=== PATIENT | male | born 1940 | race Caucasian/White ===

== ENCOUNTER 2017-05-30 17:12 | Day surgery (SDC) | payer MEDICARE ==
[2017-05-30] MEDS ORDERED: Bupivacaine 0.25% HCL 30 ML VIAL ONE (17:43)
[2017-05-30] MEDS ORDERED: Bacitracin Zinc Ointment 30 gm TUBE ONE (17:43)
[2017-05-30] MEDS ORDERED: Sodium Chloride 0.9% 30 ML ONE (17:43)
[2017-05-30] MEDS ORDERED: Thrombin 5000 UNITS/5 ML VIAL ONE ×2 (17:43→19:24)
[2017-05-30 17:59] LABS: #Eosinphils 0.2 thou/uL (0.0-0.7); #Monocytes 0.7 thou/uL (0.11-0.59); #Neutrophils 4.4 thou/uL (1.40-6.50); %Basophils 0.3 % (0.0-1.0); %Eosinophils 3.2 % (0.0-10.0); %Lymphocytes 27.4 % (21.0-51.0); %Monocytes 9.4 % (0.0-10.0); %Neutrophils 59.8 % (42.0-75.0); Hemoglobin 16.5 g/dL (14.0-18.0); Mean Corpuscular HGB CONC 33.3 g/dL (32.0-36.0); Mean Corpuscular Hemoglobin 32.6 pg (27.0-31.0); Mean Corpuscular Volume 97.8 fl (80.0-94.0); Mean Platelet Volume 7.3 fL (7.4-10.4); Platelet Count 190 thou/uL (130-400); RBC Distribution Width 12.5 % (11.5-14.5); Red Blood Cell (RBC) Count 5.07 mill/uL (4.70-6.10); White Blood Cell (WBC) Count 7.4 thou/uL (4.8-10.8)
[2017-05-30] MEDS ORDERED: CEFAZOLIN/Water 2 GM/20 ML SYRINGE ONE (18:00)
[2017-05-30 18:07] LABS: INR-International Normal Ratio 1.2; PTT 32.2 SEC (22.9-36.1); Prothrombin Time 15.8 SEC (12.0-14.7)
[2017-05-30] MEDS ORDERED: Fentanyl 100 MCG/2 ML VIAL ONE (19:02)
--- NOTE | 2017-05-30 22:17 | RAD ---
TWO VIEWS OF THE LEFT THUMB: 05/30/17 COMPARISON: 05/30/17, 11:05 a.m. HISTORY: Fracture of the tuft of the distal phalanx and nailbed repair. FINDINGS/IMPRESSION: Two limited intraoperative fluoroscopic views of the left thumb were submitted for interpretation. Th ere is absence of the distal tuft of the distal phalanx of the thumb. No radiopaque foreign body is s een. The remaining distal phalanx has comminute fracture fragments. POS: MARTELL
--- NOTE | 2017-05-31 14:07 | OP ---
DATE OF PROCEDURE: 05/30/2017 PREOPERATIVE DIAGNOSES: 1. Left thumb open fracture with 2 x 1 cm wound and full thickness skin loss, comminuted fracture, d istal phalanx. 2. Wound, distal phalanx size as listed above. 3. Nail bed laceration. 4. Full thickness skin loss. POSTOPERATIVE DIAGNOSES: 1. Left thumb open fracture with 2 x 1 cm wound and full thickness skin loss, comminuted fracture, d istal phalanx. 2. Wound, distal phalanx size as listed above. 3. Nail bed laceration. 4. Full thickness skin loss. PROCEDURE PERFORMED: 1. Debridement of material associated open fracture, distal phalanx fracture, left thumb. 2. Left thumb distal phalanx fracture, open treatment of fracture, distal phalanx. 3. Wound debridement for nail bed repair. 4. Nail removal. 5. C-arm supervision and 2 x 1 cm full-thickness skin graft made antecubital fossa. 6. Application of short arm splint. DEBRIDEMENT TECHNIQUES: Are as follows for both the wound and the bone. 1. Excisional. 2. Depth was down to including bone and nail and wound. 3. No devitalized tissue found. 4. Instrumentation used: A. Tenotomy scissors. B. [place] blade. C. 11 blade knife. D. Tenotomy scissors. E. Adson's. F. Mosquito Crile. G. Jos's Crile. H. Small curette. SPECIMEN: Bone pieces, but no gross nonviable tissue such as outside tissue like wood found in the w ound. ESTIMATED BLOOD LOSS: 20 mL. TOURNIQUET TIME: 30 minutes. HISTORY: The patient is on both Eliquis and aspirin, he has some very tremendous history of bleeding , so we took precautions with extra bulky dressing and a splint and use a thrombin-soaked Gelfoam. DESCRIPTION OF PROCEDURE: After successful general LMA technique, the limb was prepped and draped. Time out was done appropriately. We immediately put a tourniquet on to remove the dressing and given a tourniquet at 33 minutes because of possible bleeding. We removed a large hematoma first. Under loupe magnification, then we found all the 5 pieces of bone 1-2 mm that were all partially vitalized and excised them as part of the debridement. The associated open fracture as well as open treatment of the distal phalanx fracture. Once, we fini shed open treatment distal phalanx fracture by removing all the comminuted pieces and leaving it with a stable bone area, we then removed the nail, and debrided the nail bed. We finished debridement as listed in "debridement techniques above and the wound and in the nail bed by a 3 liter Pulsavac irri gation with antibiotics, 50,000 units of bacitracin per liter. Once this was done, we had clean material, did not see any foreign material, so we proceeded with wou nd closure and final treatment. Next, we used a 5-0 chromic to repair the nail bed. Then, we used a 4-0 Monocryl to pull the flap of tissue distal back up to the base of the nail bed in the bone to co carola the bone and support the nail bed, but this tissue was now pulled to devitalize of dermis and epi dermis on its dorsal side and a length of approximately 2 cm and a max width of approximately 8 mm. For this reason, we harvested the skin graft 2.1 x 1 cm under tourniquet from the antecubital fossa. Once, we harvest the skin graft and then prepared to placing all, we released the tourniquet and too k 10 to 12 minutes obtained total hemostasis. Thrombin soaked Gelfoam was placed on all 2 wounds. W e waited 5 minutes. We then electrocauterized anything bleeding on the magnification loupes. We the n immediately closed the donor site wound with problems with Gelfoam inside, removed at the last runn ing stitch of 4-0 subcutaneous closure. We then placed fibrin glue on top of the wound to help seal it, so would not bleed between the stitches. Immediately covered with Adaptic once the glue dried an d heavy dressing. At the distal wound, we then placed the thinned graft, appropriate side up on the area covered it, pl aced 4 bolster sutures, and then did a running 5-0 chromic to approximate it to the surrounding tissu e pulling that right up to the nail bed repair area on its distal edge to support the nail growth. We then placed bacitracin, Adaptic on top of the graft and the wound of the nail bed then put a heavy minimal bolster with one cotton ball on top of the graft area and bolstered it with 3-0 nylon suture that was used initially to secure the graft in all four corners before the chromic running suture. Now, hemostasis was excellent at the distal tip in order to keep it, we placed more Adaptic and bacit racin, individually wrapped him on multiple securely applied, 4 x 4s, use 2 Kerlix is at each wound s ite, then placed a short splint over the dorsal part of the thumb, 4-inch wide and secured this with Cas wrap. We then placed a Coban over the proximal wound including proximal to the elbow to prevent leakage when he lifted his arm. We watched this for 5 minutes with no leakage and the patient was pr epared and left the room without evidence of anesthetic or operative complications.
== END 2017-05-30 22:15 | disposition home or self-care (01) ==
LOC: SDC 17:12
PROVIDERS: ATTEND Orthopaedic Surgery Hand Surgery
PROC: 0PDS0ZZ Extraction of Left Thumb Phalanx, Open Approach (ICD-10-PCS; principal; 2017-05-30)
PROC: 0HRGX73 Replacement of Left Hand Skin with Autologous Tissue Substitute, Full Thickness, External Approach (ICD-10-PCS; 2017-05-30)
PROC: 0PBS0ZZ Excision of Left Thumb Phalanx, Open Approach (ICD-10-PCS; 2017-05-30)
PROC: 0HBCXZZ Excision of Left Upper Arm Skin, External Approach (ICD-10-PCS; 2017-05-30)
PROC: 0PSS0ZZ Reposition Left Thumb Phalanx, Open Approach (ICD-10-PCS; 2017-05-30)
DX: S62.522B Displaced fracture of distal phalanx of left thumb, initial encounter for open fracture (principal); I48.91 Unspecified atrial fibrillation; I10 Essential (primary) hypertension; I25.2 Old myocardial infarction; E78.5 Hyperlipidemia, unspecified; I25.10 Atherosclerotic heart disease of native coronary artery without angina pectoris; G47.33 Obstructive sleep apnea (adult) (pediatric); E66.9 Obesity, unspecified; Z68.32 Body mass index [BMI] 32.0-32.9, adult; Z79.02 Long term (current) use of antithrombotics/antiplatelets; Z79.899 Other long term (current) drug therapy; Z99.89 Dependence on other enabling machines and devices; W31.2XXA Contact with powered woodworking and forming machines, initial encounter
CPT/HCPCS: 36415; 76001; 85025; 85610; 85730; 93005; 93010; A4216; J3010; J3490; S0020

== ENCOUNTER 2022-08-16 11:22 | Outpatient (CLI) | payer MEDICARE | END 2022-08-16 11:23 | disposition home or self-care (01) | LOC: SCSRAD 11:22 | PROVIDERS: ATTEND Family Medicine | DX: R50.9 Fever, unspecified (principal) | CPT/HCPCS: 71046 ==